=== PATIENT | female | born 1960 | race Caucasian/White ===

== ENCOUNTER 2025-07-25 06:32 | Day surgery (SDC) | payer BC, OTHER ==
[2025-07-25] MEDS ORDERED: Propofol 200 MG/20 ML SDV IV ONE (06:33)
[2025-07-25] MEDS ORDERED: Ondansetron 4 MG/2 ML SDV IVPUSH ONE (06:33)
[2025-07-25] MEDS ORDERED: Sodium Chloride 0.9% 10 ML Syringe FLUSH PRN (06:45)
[2025-07-25] MEDS: Lactated Ringers 1,000 ML IV SCH (07:50)
[2025-07-25 09:40] VITALS: BP 114/69; PULSE 50
== END 2025-07-25 09:28 | disposition home or self-care (01) ==
LOC: FB.SDS 06:32
PROVIDERS: ATTEND Surgery
DX: Z12.11 Encounter for screening for malignant neoplasm of colon (principal); K57.30 Diverticulosis of large intestine without perforation or abscess without bleeding; K56.41 Fecal impaction; E03.9 Hypothyroidism, unspecified; Z88.2 Allergy status to sulfonamides; Z79.890 Hormone replacement therapy; Z79.899 Other long term (current) drug therapy
CPT/HCPCS: 00812; 45378; A9270; J2003; J2405; J2704; J7120